=== PATIENT | female | born 1970 | race Caucasian/White ===

== ENCOUNTER 2019-11-27 13:37 | Emergency (ER) | payer MEDICARE, MEDICAID ==
[~2019-11-27] VITALS: Ht 154.9 cm; Wt 44.0 kg
[~2019-11-27 13:37] MED LIST: AMBIEN 5 MG TABL5 M1 PO; AMOXICILLIN500 M1 PO; DEPAKOTE ER250 MG PO; KLONOPIN0.5 MG PO; LAMICTAL XR200 MG PO; NORCO 5-325 TA1 EAC1 PO; PREDNISONE 20 M20 M1 PO
[2019-11-27 14:30] LABS: ABSOLUTE BASOPHILS 0.1 thou/uL (0.0-0.2); ABSOLUTE EOSINOPHILS 0.1 thou/uL (0.0-0.7); ABSOLUTE LYMPHOCYTES 2.7 thou/uL (0.8-5.3); ABSOLUTE MONOCYTES 0.6 thou/uL (0.0-1.2); ABSOLUTE NEUTROPHILS 5.3 thou/uL (1.6-8.1); BASOPHILS 1.1 %; EOSINOPHILS 1.1 %; HEMATOCRIT 42.7 % (37.0-47.0); HEMOGLOBIN 14.5 gm/dL (12.0-15.0); LYMPHOCYTES 30.9 %; MCH 29.1 pg (26.0-34.0); MCHC 33.9 g/dL (28.0-37.0); MCV 85.7 fL (80.0-100.0); MONOCYTES 6.4 %; MPV 7.3 fl. (7.2-11.1); NUCLEATED RBCS 0 /100WBC; PLATELET COUNT* 221 thou/uL (150-400); POLYS 60.5 %; RBC 4.98 mil/uL (4.20-5.00); RDW-CV 14.6 % (10.5-14.5); WBC 8.8 thou/uL (4.0-11.0)
[2019-11-27 14:40] LABS: CALCIUM 8.2 mg/dL (8.5-10.1); POTASSIUM 3.6 mmol/L (3.5-5.1)
[2019-11-27 14:43] LABS: ALBUMIN 3.8 g/dL (3.4-5.0); MAGNESIUM 1.6 mg/dL (1.8-2.4); TOTAL BILIRUBIN 0.2 mg/dL (<0.1-1.0); TOTAL PROTEIN 7.2 g/dL (6.4-8.2)
[2019-11-27 15:21] LABS: URINE BILIRUBIN NEGATIVE (Negative); URINE BLOOD TRACE (Negative); URINE CLARITY CLEAR; URINE COLOR YELLOW; URINE GLUCOSE-RANDOM NEGATIVE (Negative); URINE KETONES NEGATIVE (Negative); URINE LEUKOCYTES-REFLEX NEGATIVE (Negative); URINE NITRITE-REFLEX NEGATIVE (Negative); URINE PROTEIN NEGATIVE (Negative); URINE UROBILINOGEN 0.2 E.U./dl (0.2-1.0)
--- NOTE | 2019-11-27 17:02 | EKG ---
[place] [address] ELECTROCARDIOGRAM REPORT Name: THI LAROSE Room: [facility]#: [id number] Admission: 11/27/19 Attend Phys: Discharge: Date of : 74 Date of Service: 11/27/19 1356 Report #: [id number] THIS REPORT FOR: //name// [facility] ED Test Date: 2019-11-27 Test Time: 13:56:23 Pat Name: HTI LAROSE Department: Room: Gender: Director Of [employer] Activities: [facility] : 1970 Requested By: Jaydon Jacobo Order Number: [id number] MD: Fernando Turner Measurements Intervals [place] Rate: 75 P: 71 AK: 119 QRS: 65 QRSD: 106 T: 49 QT: 378 QTc: 423 Interpretive Statements Sinus rhythm Borderline short [place] interval Left atrial enlargement Incomplete right bundle branch block no previous ECG available for comparison Electronically Signed On 11-27-2019 17:02:27 CDT by Fernando Turner [email or web address] <ELECTRONICALLY SIGNED> By: Fernando Turner MD, [facility] 11/27/19 1702 1356 1356 Fernando Turner MD, FAC /EPI
[2019-11-27] MEDS ORDERED: ZOFRAN ODT4 MG PO (17:18)
[2019-11-27] MEDS ORDERED: KEFLEX500 M1 PO (17:18)
[2019-11-27] MEDS ORDERED: MAGNESIUM400 M1 PO (17:20)
[2019-11-27 17:30] VITALS: BP 147/92
== END 2019-11-27 17:30 | disposition home or self-care (01) ==
LOC: M.ERS 13:37
PROVIDERS: Nurse Practitioner Psychiatric/Mental Health
DX: E83.42 Hypomagnesemia (principal); Z20.828 Contact with and (suspected) exposure to other viral communicable diseases; R10.31 Right lower quadrant pain; F17.210 Nicotine dependence, cigarettes, uncomplicated; Z90.710 Acquired absence of both cervix and uterus; Z87.442 Personal history of urinary calculi

== ENCOUNTER 2019-12-17 19:49 | Emergency (ER) | payer MEDICARE, MEDICAID ==
[~2019-12-17] VITALS: Ht 154.9 cm; Wt 43.5 kg
[~2019-12-17 19:49] MED LIST changes: +KEFLEX500 M1 PO; +MAGNESIUM400 M1 PO; +ZOFRAN ODT4 MG PO
[2019-12-17 20:17] LABS: URINE CLARITY HAZY; URINE COLOR ORANGE; URINE SPECIFIC GRAVITY 1.019 (1.005-1.030)
[2019-12-17 20:19] LABS: BACTERIA-REFLEX >30 Many /HPF (None Seen); SQUAMOUS >10 Many /LPF (0-3)
[2019-12-17 20:20] LABS: CASTS None Seen /LPF (None Seen); MUCUS None Seen strn/LPF (None Seen); URINE WBC-REFLEX >25 Many /HPF (0-5)
[2019-12-17 20:21] LABS: CRYSTALS None Seen /LPF (None Seen); URINE RBC None Seen /HPF (0-2)
[2019-12-17 20:43] LABS: ABSOLUTE BASOPHILS 0.2 thou/uL (0.0-0.2); ABSOLUTE EOSINOPHILS 0.2 thou/uL (0.0-0.7); ABSOLUTE LYMPHOCYTES 3.6 thou/uL (0.8-5.3); ABSOLUTE MONOCYTES 0.7 thou/uL (0.0-1.2); ABSOLUTE NEUTROPHILS 8.1 thou/uL (1.6-8.1); BASOPHILS 1.3 %; EOSINOPHILS 1.6 %; HEMATOCRIT 41.8 % (37.0-47.0); LYMPHOCYTES 28.4 %; MCH 28.3 pg (26.0-34.0); MCHC 33.4 g/dL (28.0-37.0); MCV 84.7 fL (80.0-100.0); MONOCYTES 5.4 %; MPV 7.8 fl. (7.2-11.1); NUCLEATED RBCS 0 /100WBC; PLATELET COUNT* 198 thou/uL (150-400); POLYS 63.3 %; RBC 4.93 mil/uL (4.20-5.00); RDW-CV 14.2 % (10.5-14.5); WBC 12.8 thou/uL (4.0-11.0)
[2019-12-17 20:50] LABS: CALCIUM 9.3 mg/dL (8.5-10.1); POTASSIUM 3.9 mmol/L (3.5-5.1)
[2019-12-17] MEDS ORDERED: IBUPROFEN 800800 M1 PO (21:34)
[2019-12-17] MEDS ORDERED: KEFLEX500 M1 PO (21:34)
[2019-12-17] MEDS ORDERED: NORCO 5-325 TA1 EAC2 PO (21:34)
[2019-12-17 21:52] VITALS: BP 168/94
== END 2019-12-17 21:53 | disposition home or self-care (01) ==
LOC: M.ERS 19:49
PROVIDERS: Nurse Practitioner Family
DX: N39.0 Urinary tract infection, site not specified (principal); I70.0 Atherosclerosis of aorta; Z90.710 Acquired absence of both cervix and uterus; Z87.442 Personal history of urinary calculi